=== PATIENT | female | born 1940 | race Caucasian/White ===

== ENCOUNTER → 2016-06-18 | Outpatient (CLI) | payer OTHER, MEDICARE ==
[~2016-06-18] MED LIST: DFL100 PO; EFFSR375 PO; LECI1200 PO; LISI-461 PO; MAGN400T24 PO; NTRGSL/4 UT; NXM/40 PO; POLY335040 PO; PROP80CA PO; XNX25 PO
== END | disposition home or self-care (01) ==
LOC: C.LABSPEC 16:40
PROVIDERS: ATTEND Internal Medicine
DX: B99.9 Unspecified infectious disease (principal)

== ENCOUNTER → 2016-10-25 | Outpatient (CLI) | payer OTHER, MEDICARE ==
[~2016-10-25] MED LIST changes: +ACET-1256 PO; +ALPR-411 PO; +ANSHCCR/ RE; +CALC500C3 PO; +DIPH-437 PO; +DOCU100C31 PO; +DONE10TA12 PO; +ERGO500011 PO; +LISI2.5T5 PO; +MIRT45TA3 PO; +NUTR-7 PO; +POLY1POW2 PO; +PRNJ PO; +VENL150T33 PO; +VENL75CA73 PO
[2016-10-25 15:00] LABS: URINE APPEARANCE CLOUDY (CLEAR); URINE BILIRUBIN NEG (NEG); URINE COLOR YELLOW; URINE EPITHELIAL CELL AUTO >30 /lpf (0-5); URINE NITRITE NEG (NEG); URINE SPECIFIC GRAVITY 1.016 (1.000-1.030); UROBILINOGEN NEG (NEG)
[2016-10-25 15:06] LABS: MANUAL MICROSCOPIC REQUIRED? NO; REVIEW REQ? NO
== END | disposition home or self-care (01) ==
LOC: C.LABSPEC 14:36
PROVIDERS: ATTEND Internal Medicine
DX: N39.0 Urinary tract infection, site not specified (principal)

== ENCOUNTER → 2017-01-21 | Outpatient (CLI) | payer OTHER, MEDICARE ==
[~2017-01-21] MED LIST changes: -ACET-1256 PO; -ALPR-411 PO; -ANSHCCR/ RE; -CALC500C3 PO; -DIPH-437 PO; -DOCU100C31 PO; -DONE10TA12 PO; -ERGO500011 PO; -LISI2.5T5 PO; -MIRT45TA3 PO; -NUTR-7 PO; -POLY1POW2 PO; -PRNJ PO; -VENL150T33 PO; -VENL75CA73 PO
[2017-01-21 12:27] LABS: BASO % 0.5 %; BASO ABS # 0.03 K/uL (0-0.2); COMPLETE YES; EOS % 0.5 %; HEMATOCRIT 42.7 % (37-47); IG% 0.2 %; LYMPH % 31.6 %; LYMPH ABS # 1.77 K/uL (1.2-3.4); MEAN CELL VOLUME 97.9 fL (80-100); MEAN CORPUSCULAR HEMOGLOBIN 31.4 pg (25-34); MEAN CORPUSCULAR HGB CONC 32.1 g/dl (32-36); MEAN PLATELET VOLUME 9.7 fL (7.4-10.4); MONO % 8.9 %; NEUT % 58.3 %; PLATELET COUNT 239 K/uL (130-400); RED BLOOD COUNT 4.36 M/uL (4.2-5.4); WHITE BLOOD COUNT 5.61 K/uL (4.8-10.8)
[2017-01-21 12:30] LABS: ALT/SGPT 22 U/L (12-78); BLOOD UREA NITROGEN 11 mg/dl (7-18); BUN/CREATININE RATIO 11.3 (10-20); CALCIUM 9.3 mg/dl (8.5-10.1); CARBON DIOXIDE 33 mmol/L (21-32); CHLORIDE 103 mmol/L (98-107); CREATININE 0.95 mg/dl (0.60-1.20); GLUCOSE 83 mg/dl (70-99); SODIUM 141 mmol/L (136-145)
[2017-01-21 12:40] LABS: ALB/GLOB RATIO 0.9 (0.9-2); ALKALINE PHOSPHATASE 77 U/L (45-117); AST/SGOT 21 U/L (15-37)
== END | disposition home or self-care (01) ==
LOC: C.LAB1850 09:25
PROVIDERS: ATTEND Physician Assistant
DX: G30.9 Alzheimer's disease, unspecified (principal)

== ENCOUNTER → 2017-05-25 | Outpatient (CLI) | payer OTHER, MEDICARE ==
[~2017-05-25] MED LIST changes: +ACET-1256 PO; +ANSHCCR/ RE; +CALC500C3 PO; -DFL100 PO; +DIPH-437 PO; +DOCU100C31 PO; +DONE10TA12 PO; -EFFSR375 PO; +ERGO500011 PO; -LECI1200 PO; -LISI-461 PO; +LISI2.5T5 PO; -MAGN400T24 PO; -NTRGSL/4 UT; +NUTR-7 PO; -NXM/40 PO; +POLY1POW2 PO; -POLY335040 PO; +PRNJ PO; -PROP80CA PO; -XNX25 PO
[2017-05-25 08:50] LABS: BLOOD UREA NITROGEN 9 mg/dl (7-18); BUN/CREATININE RATIO 12.8 (10-20); CALCIUM 8.4 mg/dl (8.5-10.1); CARBON DIOXIDE 27 mmol/L (21-32); CHLORIDE 105 mmol/L (98-107); CREATININE 0.72 mg/dl (0.60-1.20); GLUCOSE 94 mg/dl (70-99); POTASSIUM 3.4 mmol/L (3.5-5.1); SODIUM 139 mmol/L (136-145)
== END | disposition home or self-care (01) ==
LOC: C.LABSPEC 08:29
PROVIDERS: ATTEND Nurse Practitioner Adult Health
DX: I10 Essential (primary) hypertension (principal)